=== PATIENT | female | born 2000 | race Hispanic/Latino ===

== ENCOUNTER → 2023-02-11 | Outpatient (CLI) | payer OTHER ==
[~2023-02-11] MED LIST: DIATR MEGLU/DIATRIZOATE SODIUM 30 ML BOTTLE ONE; IOHEXOL 350 MG/ML 100ML INFUS..BTL IV ONE
== END | disposition home or self-care (01) ==
LOC: RAH 10:00
PROVIDERS: ATTEND Surgery
DX: Z93.2 Ileostomy status (principal); Z98.890 Other specified postprocedural states
CPT/HCPCS: 74178; Q9963; Q9967